=== PATIENT | male | born 1975 | race Caucasian/White ===

== ENCOUNTER 2016-03-28 11:40 | Emergency (ER) | payer BC ==
--- NOTE | 2016-03-28 13:29 | ED CLINICAL REPORT ---
Clinical Report - Physicians/Mid Levels [facility] [address] [place] [address] 03/28/2016 11:42 Patient: NOLBERTO العلي Time Seen: 1202; initial patient contact, initial documentation, patient care assumed. Arrived- By private vehicle. Historian- patient. HISTORY OF PRESENT ILLNESS Chief Complaint: ( shakes). This started today and is still present. It was abrupt in onset and has been constant. No loss of appetite, weight loss, headache, visual disturbance or fatigue. No muscle aches. Denies sleep problem. No decreased urine output. He has had weakness. (states he is a daily drinker, just got back from [place] yesterday, where he did even more drinking, and since then has had the shakes, feels weak, and doesn't feel good, last drink was last pm). Similar symptoms previously: Once, as bad. Recent medical care: Not recently seen/assessed. REVIEW OF SYSTEMS No sore throat, sinus drainage, nasal congestion, cough or difficulty breathing. No chest pain, abdominal pain, nausea, vomiting or diarrhea. No difficulty with urination. All systems otherwise negative, except as recorded above. PAST HISTORY See nurses notes. PROBLEMS: Alcoholism. --11:58 Jasen Jean R.N. ADDITIONAL SURGERIES: Vasectomy. --11:58 Jasen Jean R.N. SOCIAL HISTORY Former smoker. Heavy alcohol use; consumes liquor daily. Last drink was less than 24 hours ago. Patient is a longstanding alcoholic. No drug use. Recent travel by airplane in the last week- [facility]. No recent travel in endemic area. Did not participate in outdoor activities. Is a local resident. FAMILY HISTORY Negative. ADDITIONAL NOTES The nursing notes have been reviewed with agreement regarding the chief complaint, HPI, ROS, PMH and patient medications and allergies. PHYSICAL EXAM Vital Signs: 03/28/2016 11:54 BP: 153/95. HR: 109. RR: 22. O2 saturation: 98%. Temp: 98.8 F. Have been reviewed as abnormal and appear to be correct. Hypertensive. Tachycardic. Respiratory rate normal. Temperature normal. Oxygen saturation normal. Appearance: Alert. No acute distress. (tremors present). Eyes: Pupils equal, round and reactive to light. Eyes normal inspection. Neck: Normal inspection. Neck supple. CVS: Heart rate / rhythm abnormal. Tachycardia (ventricular rate = 110). Heart sounds normal. Pulses normal. Respiratory: No respiratory distress. Breath sounds normal. Chest nontender. Abdomen: No visible injury. Soft and nontender. Bowel sounds normal. No organomegaly. No mass. Back: Normal inspection. Skin: Skin warm and dry. Normal skin color. No rash. Normal skin turgor. Extremities: Extremities exhibit normal ROM. No lower extremity edema. Neuro: Oriented X 3. No motor deficit. No sensory deficit. LABS, X-RAYS, AND EKG Laboratory Tests: UA-Culture if indicated: (CHASTITY: 03/28/2016 12:40) ( [facility] 03/28/2016 12:55) Final results Test Result Flag Units (Reference) URINE COLOR YELLOW URINE APPEARANCE CLEAR URINE GLUCOSE NEGATIVE (NEGATIVE) URINE BILIRUBIN NEGATIVE (NEGATIVE) URINE KETONE 1+ (NEGATIVE) URINE SPECIFIC GRAVITY 1.015 (1.010-1.030) URINE PH 8.0 (5.0-8.0) URINE PROTEIN NEGATIVE (NEGATIVE) URINE UROBILINOGEN 0.2 EU/dL (0.2-1.0) URINE NITRITE NEGATIVE (NEGATIVE) URINE BLOOD NEGATIVE (NEGATIVE) URINE LEUK ESTERASE NEGATIVE (NEGATIVE) URINE RBC RARE rbc/hpf (0-1) URINE WBC RARE wbc/hpf (0-1) URINE EPITHELIAL CELLS RARE EPI/hpf (0-5) URINE BACTERIA NONE SEEN (NONE SEEN) URINE COMMENT CULT NOT INDICATED URINE CULTURES ARE SET-UP BASED ON THE FOLLOWING CRITERIA:POSITIVE NITRITEPOSITIVE LEUKOCYTE ESTERASEGREATER THAN 10 WHITE BLOOD CELLSMODERATE (2+) OR GREATER BACTERIA CBC w Diff: (CHASTITY: 03/28/2016 12:35) ( [facility] 03/28/2016 12:46) Final results Test Result Flag Units (Reference) WHITE BLOOD COUNT 8.2 K/uL (4.5-11.5) RED BLOOD COUNT 4.91 M/uL (4.50-5.90) HEMOGLOBIN 15.8 gm/dL (13.5-17.5) HEMATOCRIT 47.0 % (41.0-53.0) MEAN CELL VOLUME 96 fL (80-100) MEAN CORPUSCULAR HGB 32 pg (26-34) MEAN CORPUSCULAR HGB CONC 34 g/dL (31-37) RED CELL DISTRIBUTION WIDTH 13.0 % (11.6-14.8) PLATELET COUNT 170 K/uL (150-400) NEUTROPHIL % 81.9 H % (50-75) LYMPH % 11.4 L % (25-40) MONO % 5.8 % (3-14) EOSINOPHIL % 0.8 % (0-4) BASOPHIL % 0.1 % (0-2) Urine Drug Screen: (CHASTITY: 03/28/2016 12:40) ( MsgRcvd 03/28/2016 13:01) Final results Test Result Flag Units (Reference) AMPHETAMINE/METHAMPHETAMINE NEGATIVE (NEGATIVE) BARBITURATE NEGATIVE (NEGATIVE) BENZODIAZEPINE NEGATIVE (NEGATIVE) CANNABINOID NEGATIVE (NEGATIVE) COCAINE NEGATIVE (NEGATIVE) ECSTASY NEGATIVE (NEGATIVE) METHADONE NEGATIVE (NEGATIVE) OPIATE NEGATIVE (NEGATIVE) The urine drug screen is a qualitative screening test fordrug overdose and abuse. All screen results should beconsidered as presumptive.Drugs screened for are as follows:BenzodiazepinesCocaineAmphetamines/MetamphetaminesTHC (Tetrahydrocannabinol)OpiatesBarbituratesEcstasyMethadonePositive results are unconfirmed. For confirmation, notifythe lab for the specimen to be sent to the reference lab.All confirmations must be performed by a differentmethodology.The ingestion of natural herbal and plant productscontaining Ephedra/Ephedra metabolites can produce in urineone or more substances capable of cross reacting withamphetamine/methamphetamine immunoassays. These testsprovide a preliminary result only. A more specificalternative chemical method must be used to obtain aconfirmed analytical result. CMP: (CHASTITY: 03/28/2016 12:35) ( MsgRcvd 03/28/2016 13:07) Final results Test Result Flag Units (Reference) GLUCOSE 124 H mg/dL (70-110) BUN 7 mg/dL (7-18) CREATININE 0.7 mg/dL (0.6-1.3) Estimated GFR >60 mL/min Estimated GFR- >60 mL/min Note: Persistent reduction over 3 months in eGFR<60 mL/min/1.73 m2 defines CKD. Patients with eGFR values>=60 mL/min/1.73 m2 may also have CKD if evidence ofpersistent proteinuria. Additional information may be foundat www.kidney.org. SODIUM 141 mmol/L (136-145) POTASSIUM 3.8 mmol/L (3.5-5.1) CHLORIDE 101 mmol/L (98-107) CARBON DIOXIDE 28 mmol/L (21-32) CALCIUM 8.4 L mg/dL (8.5-10.1) TOTAL PROTEIN 7.4 g/dL (6.4-8.2) ALBUMIN 3.7 g/dL (3.3-5.0) BILIRUBIN, TOTAL 0.7 mg/dL (0.0-1.0) ALKALINE PHOSPHATASE 73 U/L (46-116) AST (SGOT) 105 H U/L (15-37) ALT (SGPT) 191 H U/L (12-78) LIPASE 223 U/L (73-393) AMYLASE 49 U/L (25-115) ETHYL ALCOHOL <3 L mg/dL (3-10) . PROGRESS AND PROCEDURES Course of Care: pt stated he felt better and the shakes almost gone. Patient counseled in person regarding the patient's stable condition, test results and diagnosis. 13:29. Differential Diagnosis: Other possible considerations: alcoholism, withdrawal, sz, hypoglycemia, electrolyte imbalance, muscle spasms, neuropathy, dehydration. Above considerations are based on history, physical exam and laboratory data. Differential diagnosis was discussed with patient. Disposition: Discharged home in good and improved condition (13:29). Condition: good and stable. CLINICAL IMPRESSION Alcohol withdrawal with delirium tremens. No irritability, agitation, confusion, delirium or hallucinations. No seizures. INSTRUCTIONS No alcohol. Warnings: GENERAL WARNINGS: Return or contact your physician immediately if your condition worsens or changes unexpectedly, if not improving as expected, or if other problems arise. Specifically return if problem worsens. Follow-up: Follow up with your doctor in about three days even if well. Call for an appointment. Summary of care provided to patient. Understanding of the discharge instructions verbalized by patient. (Electronically signed by Karina Edwards A.R.N.P. 03/28/2016 14:21)
--- NOTE | 2016-03-28 13:29 | ED ORDER SUMMARY ---
..... Patient: NOLBERTO العلي OrderSheet [facility] VisitID: [id number] [place] [address] 40y, M Registration Date/Time: 03/28/2016 ORDER SHEET Weight: 83.9 kg (stated) Allergies: No Known Drug Allergy GENERAL ORDERS: CBC w Diff Urgent (12:03/28/2016 HBivens A.R.N.P.) (Ack 12:10 LTapper) (12:42 MWinterer R.N.) CMP Urgent (12:03/28/2016 HBivens A.R.N.P.) (Ack 12:10 LTapper) (12:42 MWinterer R.N.) UA-Culture if indicated Urgent (12:03/28/2016 HBivens A.R.N.P.) (Ack 12:10 LTapper) (12:42 MWinterer R.N.) Amylase Urgent (12:03/28/2016 HBivens A.R.N.P.) (Ack 12:10 LTapper) (12:42 MWinterer R.N.) Lipase Urgent (12:03/28/2016 HBivens A.R.N.P.) (Ack 12:10 LTapper) (12:42 MWinterer R.N.) Urine Drug Screen Urgent (12:03/28/2016 HBivens A.R.N.P.) (Ack 12:10 LTapper) (12:42 MWinterer R.N.) Ethyl Alcohol Urgent (12:03/28/2016 HBivens A.R.N.P.) (Ack 12:10 LTapper) (12:42 MWinterer R.N.) MEDICATION ORDERS: IV FLUIDS: IV NS : initial bolus 1000 mL (1000 mL/hr), then none - for X1 (NOW) (12:03/28/2016 HBivens A.R.N.P.) (Ack 12:20 MWinterer R.N.) (12:42 MWinterer R.N.) IV Saline Lock (12:03/28/2016 HBivens A.R.N.P.) (Ack 12:20 MWinterer R.N.) (12:42 MWinterer R.N.) ORDER SHEET NOTES: [Electronically signed by Adelaida Junior (13:43 03/28/2016)] [Electronically signed by Karina EdwardsN.PJarod (14:21 03/28/2016)] [Electronically locked/signed by Adelaida Junior (13:43 03/28/2016)]
--- NOTE | 2016-03-28 13:29 | ED CLINICAL REPORT ---
Clinical Report - Physicians/Mid Levels [facility] [address] [place] [address] 03/28/2016 11:42 Patient: NOLBERTO العلي Time Seen: 1202; initial patient contact, initial documentation, patient care assumed. Arrived- By private vehicle. Historian- patient. HISTORY OF PRESENT ILLNESS Chief Complaint: ( shakes). This started today and is still present. It was abrupt in onset and has been constant. No loss of appetite, weight loss, headache, visual disturbance or fatigue. No muscle aches. Denies sleep problem. No decreased urine output. He has had weakness. (states he is a daily drinker, just got back from [place] yesterday, where he did even more drinking, and since then has had the shakes, feels weak, and doesn't feel good, last drink was last pm). Similar symptoms previously: Once, as bad. Recent medical care: Not recently seen/assessed. REVIEW OF SYSTEMS No sore throat, sinus drainage, nasal congestion, cough or difficulty breathing. No chest pain, abdominal pain, nausea, vomiting or diarrhea. No difficulty with urination. All systems otherwise negative, except as recorded above. PAST HISTORY See nurses notes. PROBLEMS: Alcoholism. --11:58 Jasen Jean R.N. ADDITIONAL SURGERIES: Vasectomy. --11:58 Jasen Jean R.N. SOCIAL HISTORY Former smoker. Heavy alcohol use; consumes liquor daily. Last drink was less than 24 hours ago. Patient is a longstanding alcoholic. No drug use. Recent travel by airplane in the last week- [facility]. No recent travel in endemic area. Did not participate in outdoor activities. Is a local resident. FAMILY HISTORY Negative. ADDITIONAL NOTES The nursing notes have been reviewed with agreement regarding the chief complaint, HPI, ROS, PMH and patient medications and allergies. PHYSICAL EXAM Vital Signs: 03/28/2016 11:54 BP: 153/95. HR: 109. RR: 22. O2 saturation: 98%. Temp: 98.8 F. Have been reviewed as abnormal and appear to be correct. Hypertensive. Tachycardic. Respiratory rate normal. Temperature normal. Oxygen saturation normal. Appearance: Alert. No acute distress. (tremors present). Eyes: Pupils equal, round and reactive to light. Eyes normal inspection. Neck: Normal inspection. Neck supple. CVS: Heart rate / rhythm abnormal. Tachycardia (ventricular rate = 110). Heart sounds normal. Pulses normal. Respiratory: No respiratory distress. Breath sounds normal. Chest nontender. Abdomen: No visible injury. Soft and nontender. Bowel sounds normal. No organomegaly. No mass. Back: Normal inspection. Skin: Skin warm and dry. Normal skin color. No rash. Normal skin turgor. Extremities: Extremities exhibit normal ROM. No lower extremity edema. Neuro: Oriented X 3. No motor deficit. No sensory deficit. LABS, X-RAYS, AND EKG Laboratory Tests: UA-Culture if indicated: (CHASTITY: 03/28/2016 12:40) ( [facility] 12:55) Final results Test Result Flag Units (Reference) URINE COLOR YELLOW URINE APPEARANCE CLEAR URINE GLUCOSE NEGATIVE (NEGATIVE) URINE BILIRUBIN NEGATIVE (NEGATIVE) URINE KETONE 1+ (NEGATIVE) URINE SPECIFIC GRAVITY 1.015 (1.010-1.030) URINE PH 8.0 (5.0-8.0) URINE PROTEIN NEGATIVE (NEGATIVE) URINE UROBILINOGEN 0.2 EU/dL (0.2-1.0) URINE NITRITE NEGATIVE (NEGATIVE) URINE BLOOD NEGATIVE (NEGATIVE) URINE LEUK ESTERASE NEGATIVE (NEGATIVE) URINE RBC RARE rbc/hpf (0-1) URINE WBC RARE wbc/hpf (0-1) URINE EPITHELIAL CELLS RARE EPI/hpf (0-5) URINE BACTERIA NONE SEEN (NONE SEEN) URINE COMMENT CULT NOT INDICATED URINE CULTURES ARE SET-UP BASED ON THE FOLLOWING CRITERIA:POSITIVE NITRITEPOSITIVE LEUKOCYTE ESTERASEGREATER THAN 10 WHITE BLOOD CELLSMODERATE (2+) OR GREATER BACTERIA CBC w Diff: (CHASTITY: 03/28/2016 12:35) ( [facility] 03/28/2016 12:46) Final results Test Result Flag Units (Reference) WHITE BLOOD COUNT 8.2 K/uL (4.5-11.5) RED BLOOD COUNT 4.91 M/uL (4.50-5.90) HEMOGLOBIN 15.8 gm/dL (13.5-17.5) HEMATOCRIT 47.0 % (41.0-53.0) MEAN CELL VOLUME 96 fL (80-100) MEAN CORPUSCULAR HGB 32 pg (26-34) MEAN CORPUSCULAR HGB CONC 34 g/dL (31-37) RED CELL DISTRIBUTION WIDTH 13.0 % (11.6-14.8) PLATELET COUNT 170 K/uL (150-400) NEUTROPHIL % 81.9 H % (50-75) LYMPH % 11.4 L % (25-40) MONO % 5.8 % (3-14) EOSINOPHIL % 0.8 % (0-4) BASOPHIL % 0.1 % (0-2) Urine Drug Screen: (CHASTITY: 03/28/2016 12:40) ( MsgRcvd 03/28/2016 13:01) Final results Test Result Flag Units (Reference) AMPHETAMINE/METHAMPHETAMINE NEGATIVE (NEGATIVE) BARBITURATE NEGATIVE (NEGATIVE) BENZODIAZEPINE NEGATIVE (NEGATIVE) CANNABINOID NEGATIVE (NEGATIVE) COCAINE NEGATIVE (NEGATIVE) ECSTASY NEGATIVE (NEGATIVE) METHADONE NEGATIVE (NEGATIVE) OPIATE NEGATIVE (NEGATIVE) The urine drug screen is a qualitative screening test fordrug overdose and abuse. All screen results should beconsidered as presumptive.Drugs screened for are as follows:BenzodiazepinesCocaineAmphetamines/MetamphetaminesTHC (Tetrahydrocannabinol)OpiatesBarbituratesEcstasyMethadonePositive results are unconfirmed. For confirmation, notifythe lab for the specimen to be sent to the reference lab.All confirmations must be performed by a differentmethodology.The ingestion of natural herbal and plant productscontaining Ephedra/Ephedra metabolites can produce in urineone or more substances capable of cross reacting withamphetamine/methamphetamine immunoassays. These testsprovide a preliminary result only. A more specificalternative chemical method must be used to obtain aconfirmed analytical result. CMP: (CHASTITY: 03/28/2016 12:35) ( MsgRcvd 03/28/2016 13:07) Final results Test Result Flag Units (Reference) GLUCOSE 124 H mg/dL (70-110) BUN 7 mg/dL (7-18) CREATININE 0.7 mg/dL (0.6-1.3) Estimated GFR >60 mL/min Estimated GFR- >60 mL/min Note: Persistent reduction over 3 months in eGFR<60 mL/min/1.73 m2 defines CKD. Patients with eGFR values>=60 mL/min/1.73 m2 may also have CKD if evidence ofpersistent proteinuria. Additional information may be foundat www.kidney.org. SODIUM 141 mmol/L (136-145) POTASSIUM 3.8 mmol/L (3.5-5.1) CHLORIDE 101 mmol/L (98-107) CARBON DIOXIDE 28 mmol/L (21-32) CALCIUM 8.4 L mg/dL (8.5-10.1) TOTAL PROTEIN 7.4 g/dL (6.4-8.2) ALBUMIN 3.7 g/dL (3.3-5.0) BILIRUBIN, TOTAL 0.7 mg/dL (0.0-1.0) ALKALINE PHOSPHATASE 73 U/L (46-116) AST (SGOT) 105 H U/L (15-37) ALT (SGPT) 191 H U/L (12-78) LIPASE 223 U/L (73-393) AMYLASE 49 U/L (25-115) ETHYL ALCOHOL <3 L mg/dL (3-10) . PROGRESS AND PROCEDURES Course of Care: pt stated he felt better and the shakes almost gone. Patient counseled in person regarding the patient's stable condition, test results and diagnosis. 13:29. Differential Diagnosis: Other possible considerations: alcoholism, withdrawal, sz, hypoglycemia, electrolyte imbalance, muscle spasms, neuropathy, dehydration. Above considerations are based on history, physical exam and laboratory data. Differential diagnosis was discussed with patient. Disposition: Discharged home in good and improved condition (13:29). Condition: good and stable. CLINICAL IMPRESSION Alcohol withdrawal with delirium tremens. No irritability, agitation, confusion, delirium or hallucinations. No seizures. INSTRUCTIONS No alcohol. Warnings: GENERAL WARNINGS: Return or contact your physician immediately if your condition worsens or changes unexpectedly, if not improving as expected, or if other problems arise. Specifically return if problem worsens. Follow-up: Follow up with your doctor in about three days even if well. Call for an appointment. Summary of care provided to patient. Understanding of the discharge instructions verbalized by patient. (Electronically signed by Karina Edwards A.R.N.P. 03/28/2016 14:21)
--- NOTE | 2016-03-28 13:29 | ED NURSING NOTES ---
Clinical Report - Nurses [facility] [address] [place] [place] [address] 03/28/2016 11:42 Patient: NOLBERTO العلي TRIAGE Triage time 11:50. Acuity: LEVEL 3. Chief Complaint: DIZZINESS and ALCOHOLIC. 11:58 03/28/16. Alert. No acute distress. FUAD COMA SCORE: [place] Coma Scale: 15- eyes open spontaneously (4); best verbal response- oriented x 4 (5); best motor response- obeys commands (6). --11:58 Jasen Jean R.N. 11:54 03/28/16. BP: 153/95. HR: 109. RR: 22. O2 saturation: 98% on room air. Temp: 98.8 F (oral). Pain level now 0/10. --11:58 Jasen Jean R.N. Weight: 83.9 kg stated. Height/Length: 72 inches Per Patient. BMI: 25.1. --11:55 Jasen Jean R.N. Medications None. --11:57 Jasen Jean R.N. Allergies No Known Drug Allergy. --11:57 Jasen Jean R.N. Medication/allergy information source: the patient. --11:58 Jasen Jean R.N. History Primary physician (no pcp). ( states heavy use of ETOH, approx 12 shots per night. States last drink was last night. C/O shakiness and dizziness today. States he has previously withdrawn from etoh but denies any seizures or hospital admissions r/t etoh withdrawl.). This started today. Treatment INVESTMENT DIRECTOR: None. SOCIAL HX: Former smoker, end date 2006. Alcohol use; consumes a large amount of liquor daily. (12 drinks daily). No drug use. FALL RISK ASSESSMENT: Fall risk assessment completed. No fall risk identified. NUTRITIONAL RISK ASSESSMENT: The nutritional risk assessment revealed no deficiencies. FUNCTIONAL ASSESSMENT: Functional assessment: no impairments noted. LEARNING NEEDS ASSESSMENT: The learning needs assessment revealed no barriers. SKIN INTEGRITY ASSESSMENT: Skin integrity risk assessment completed. No skin integrity risk identified. --11:58 Jasen Jean R.N. PROBLEMS: Alcoholism. --11:58 Jasen Jean R.N. ADDITIONAL SURGERIES: Vasectomy. --11:58 Jasen Jean R.N. Interventions ID band on patient. To treatment room. --11:58 Jasen Jean R.N. PHYSICAL ASSESSMENT Ambulatory to room. GENERAL / NEURO / PSYCH: Oriented X 4. Appears anxious. Alert. Speech within normal limits. ( mild tremors present). HEENT: No facial asymmetry noted. RESPIRATORY: Breath sounds within normal limits. Respirations not labored. CVS: Capillary refill less than 2 seconds. GI / : Abdomen soft and nontender. SKIN: Skin is warm and dry. --11:59 Jasen Jean R.N. NURSING PROGRESS NOTES 11:59 03/28/16. The plan of care for this patient has been created. Patient gowned. Head of bed elevated. Call light placed in reach. Bed placed in lowest position. Brakes of bed on. Patient ready for evaluation- chart flagged. --11:59 Jasen Jean R.N. 12:31 03/28/2016 Site #1 started via IV in the left antecubital space with an 20g angiocath, with aseptic technique and good blood return; one attempt. Blood drawn: rainbow set. Labeled in the presence of the patient and sent to the lab. --12:41 Katie Tony R.N. 12:42 03/28/2016 Started bag #1 1000 mL IV Fluids IV NS (Saline); at 999 mL/hr over 1 hour(s) via site #1 via IV pump. Allergies verified and confirmed 5 rights. IV patency established. IV site checked: no pain, redness, or swelling. IV flushed thoroughly pre- and post-medication administration. --12:42 Katie Tony R.N. Patient ID band checked for patient name and birthdate: patient confirmed. Instructions provided to collect clean catch urine and patient verbalized understanding. Clean catch urine collected with return of yellow-colored clear urine; odor is normal; sample sent to lab for urinalysis. Specimen labeled in the presence of the patient. --12:42 Jasen Jean R.N. DISPOSITION / DISCHARGE 13:41 03/28/16. BP: 161/95. HR: 102. RR: 18. O2 saturation: 97%. Pain level now 06/08. --13:42 Adelaida Junior Departure time: 13:42. Condition at departure: improved and stable. No learning barriers present. Discharge instructions provided and reviewed with the patient. Reviewed referrals. Patient verbalized understanding. Written instructions provided in Azeri. The patient was discharged by the physician. He was discharged home. He left the Emergency Department ambulatory and via private vehicle. Patient driving. --13:42 Adelaida Junior 13:42 03/28/2016 Site #1 removed upon discharge. Pressure dressing applied. --13:42 Adelaida Junior 13:42 03/28/2016 IV Fluids IV NS Discontinued: bag #1 infused upon discharge. Total amount infused: 1000 mL. --13:42 Adelaida Junior. Locked/Released at 03/28/2016 13:43 by Adelaida Junior,
--- NOTE | 2016-03-28 13:29 | ED ORDER SUMMARY ---
..... Patient: NOLBERTO العلي OrderSheet [facility] VisitID: [id number] [place] [address] 40y, M Registration Date/Time: 03/28/2016 ORDER SHEET Weight: 83.9 kg (stated) Allergies: No Known Drug Allergy GENERAL ORDERS: CBC w Diff Urgent (12:03/28/2016 HBivens A.R.N.P.) (Ack 12:10 LTapper) (12:42 MWinterer R.N.) CMP Urgent (12:03/28/2016 HBivens A.R.N.P.) (Ack 12:10 LTapper) (12:42 MWinterer R.N.) UA-Culture if indicated Urgent (12:03/28/2016 HBivens A.R.N.P.) (Ack 12:10 LTapper) (12:42 MWinterer R.N.) Amylase Urgent (12:03/28/2016 HBivens A.R.N.P.) (Ack 12:10 LTapper) (12:42 MWinterer R.N.) Lipase Urgent (12:03/28/2016 HBivens A.R.N.P.) (Ack 12:10 LTapper) (12:42 MWinterer R.N.) Urine Drug Screen Urgent (12:03/28/2016 HBivens A.R.N.P.) (Ack 12:10 LTapper) (12:42 MWinterer R.N.) Ethyl Alcohol Urgent (12:03/28/2016 HBivens A.R.N.P.) (Ack 12:10 LTapper) (12:42 MWinterer R.N.) MEDICATION ORDERS: IV FLUIDS: IV NS : initial bolus 1000 mL (1000 mL/hr), then none - for X1 (NOW) (12:03/28/2016 HBivens A.R.N.P.) (Ack 12:20 MWinterer R.N.) (12:42 MWinterer R.N.) IV Saline Lock (12:03/28/2016 HBivens A.R.N.P.) (Ack 12:20 MWinterer R.N.) (12:42 MWinterer R.N.) ORDER SHEET NOTES: [Electronically signed by Adelaida Junior (13:43 03/28/2016)] [Electronically signed by Karina EdwardsN.PJarod (14:21 03/28/2016)] [Electronically locked/signed by Adelaida Junior (13:43 03/28/2016)]
--- NOTE | 2016-03-28 14:22 | ED DISCHARGE INSTRUCTIONS ---
Patient: NOLBERTO العلي General Instructions [facility] VisitID: [id number] [place] [address] 40y, M Registration Date/Time: 03/28/2016 Alcohol withdrawal with delirium tremens. No irritability, agitation, confusion, delirium or hallucinations. No seizures. INSTRUCTIONS No alcohol. Warnings: GENERAL WARNINGS: Return or contact your physician immediately if your condition worsens or changes unexpectedly, if not improving as expected, or if other problems arise. Specifically return if problem worsens. Follow-up: Follow up with your doctor in about three days even if well. Call for an appointment. Summary of care provided to patient. Understanding of the discharge instructions verbalized by patient. ADDITIONAL INFORMATION Alcohol Withdrawal Alcohol withdrawal symptoms occur if you have been drinking steadily for at least several days, and your body gets used to the effect of alcohol. When you suddenly stop drinking (or, even just cut down your daily intake but continue to drink), you may develop alcohol withdrawal, also called the The usual symptoms last 3-4 days and include nervousness, shakiness, nausea, sweating, sleeplessness. In severe cases hallucinations (seeing things that are not there) and seizures can occur. Home Care: You will need plenty of rest and fluids over the next several days. Eat regular meals. Of course, do not drink any more alcohol. During this time, it is best that you stay with family or friends who can help and support you. You can also admit yourself to a residential detox program. Do not drive until all symptoms are gone and you are feeling better. If you were given sedative medication to reduce your symptoms, do not take it more often than prescribed and never take it with alcohol. Follow Up: Once you have gone through the withdrawal symptoms, you have fought half of the dacosta. To avoid the risk of returning to your previous drinking pattern, it is essential that you get follow-up support and treatment. Alcoholics Anonymous offers support through a self-help fellowship. There are no dues or fees. See the Yellow Pages and call for time and place of meetings. www.aa.org [employer] offers support to families of alcohol users. 348.948.7069 www.al-anon.org National [place] On Alcoholism And Drug Dependence 323-142-3432 www.ncadd.org Residential alcohol detox programs are available. Check the Yellow Pages under Drug Abuse & Treatment Centers. Get Prompt Medical Attention if any of the following occur: Severe shakiness Hallucinations Seizure Fever over 100.5 F (38.0 C) oral Headache, confusion, extreme drowsiness, inability to awaken Increasing upper abdominal pain Repeated vomiting or vomiting blood You have been given the following additional information: Alcohol Withdrawal (Electronically signed by Karina Edwards A.R.N.PJarod 03/28/2016 14:21)
--- NOTE | 2016-03-28 14:22 | ED MAR SUMMARY ---
..... Medication Administration Record [facility] [address] [place] [address] Patient: NOLBERTO العلي Visit ID: [id number] 40y, M Weight: 83.9 kg Height/Length: 72 in BMI: 25.1 ALLERGIES: No Known Drug Allergy Start 12:42 03/28/2016 Katie Tony R.N., Stop 13:42 03/28/2016 Adelaida Junior, Medication Administered: IV NS (SALINE), Dose: IV Fluids over 1 hour(s), Rate: 999 mL/hr, Dispensed: 1000 mL bag, Site: #1 left AC. Medication Ordered: IV NS : initial bolus 1000 mL (1000 mL/hr), then none - for X1 (NOW).
--- NOTE | 2016-03-28 14:22 | ED MED RECONCILIATION SUMMARY ---
Patient: NOLBERTO العلي Medication Reconciliation Report [facility] VisitID: [id number] [address] [place] [address] 40y, M Registration Date/Time: 03/28/2016 Weight: 83.9 kg Height/Length: 72 in. BMI: 25.1 ALLERGIES: No Known Drug Allergy The patient's Home Medications are listed below: NONE. The source(s) of the original Home Medication information: patient The following Medications were given to the patient in the Emergency Department: IV NS IV Fluids bolus 0, then 999 mL/hr, administered: 03/28/2016 12:42:00 PM The following Medications were prescribed to the patient: None.
--- NOTE | 2016-03-28 14:22 | ED DISCHARGE INSTRUCTIONS ---
Patient: NOLBERTO العلي General Instructions [facility] VisitID: [id number] [place] [address] 40y, M Registration Date/Time: 03/28/2016 Alcohol withdrawal with delirium tremens. No irritability, agitation, confusion, delirium or hallucinations. No seizures. INSTRUCTIONS No alcohol. Warnings: GENERAL WARNINGS: Return or contact your physician immediately if your condition worsens or changes unexpectedly, if not improving as expected, or if other problems arise. Specifically return if problem worsens. Follow-up: Follow up with your doctor in about three days even if well. Call for an appointment. Summary of care provided to patient. Understanding of the discharge instructions verbalized by patient. ADDITIONAL INFORMATION Alcohol Withdrawal Alcohol withdrawal symptoms occur if you have been drinking steadily for at least several days, and your body gets used to the effect of alcohol. When you suddenly stop drinking (or, even just cut down your daily intake but continue to drink), you may develop alcohol withdrawal, also called the The usual symptoms last 3-4 days and include nervousness, shakiness, nausea, sweating, sleeplessness. In severe cases hallucinations (seeing things that are not there) and seizures can occur. Home Care: You will need plenty of rest and fluids over the next several days. Eat regular meals. Of course, do not drink any more alcohol. During this time, it is best that you stay with family or friends who can help and support you. You can also admit yourself to a residential detox program. Do not drive until all symptoms are gone and you are feeling better. If you were given sedative medication to reduce your symptoms, do not take it more often than prescribed and never take it with alcohol. Follow Up: Once you have gone through the withdrawal symptoms, you have fought half of the dacosta. To avoid the risk of returning to your previous drinking pattern, it is essential that you get follow-up support and treatment. Alcoholics Anonymous offers support through a self-help fellowship. There are no dues or fees. See the Yellow Pages and call for time and place of meetings. www.aa.org [employer] offers support to families of alcohol users. 202.938.3497 www.al-anon.org National [place] On Alcoholism And Drug Dependence 861-014-2480 www.ncadd.org Residential alcohol detox programs are available. Check the Yellow Pages under Drug Abuse & Treatment Centers. Get Prompt Medical Attention if any of the following occur: Severe shakiness Hallucinations Seizure Fever over 100.5 F (38.0 C) oral Headache, confusion, extreme drowsiness, inability to awaken Increasing upper abdominal pain Repeated vomiting or vomiting blood You have been given the following additional information: Alcohol Withdrawal (Electronically signed by Karina Edwards A.R.N.PJarod 03/28/2016 14:21)
--- NOTE | 2016-03-28 14:22 | ED MAR SUMMARY ---
..... Medication Administration Record [facility] [address] [place] [address] Patient: NOLBERTO العلي Visit ID: [id number] 40y, M Weight: 83.9 kg Height/Length: 72 in BMI: 25.1 ALLERGIES: No Known Drug Allergy Start 12:42 03/28/2016 Katie Tony R.N., Stop 13:42 03/28/2016 Adelaida Junior, Medication Administered: IV NS (SALINE), Dose: IV Fluids over 1 hour(s), Rate: 999 mL/hr, Dispensed: 1000 mL bag, Site: #1 left AC. Medication Ordered: IV NS : initial bolus 1000 mL (1000 mL/hr), then none - for X1 (NOW).
--- NOTE | 2016-03-28 14:22 | ED MED RECONCILIATION SUMMARY ---
Patient: NOLBERTO العلي Medication Reconciliation Report [facility] VisitID: [id number] [address] [place] [address] 40y, M Registration Date/Time: 03/28/2016 Weight: 83.9 kg Height/Length: 72 in. BMI: 25.1 ALLERGIES: No Known Drug Allergy The patient's Home Medications are listed below: NONE. The source(s) of the original Home Medication information: patient The following Medications were given to the patient in the Emergency Department: IV NS IV Fluids bolus 0, then 999 mL/hr, administered: 03/28/2016 12:42:00 PM The following Medications were prescribed to the patient: None.
== END 2016-03-28 13:42 | disposition home or self-care (01) ==
LOC: ED SRH 11:40
DX: F10.239 Alcohol dependence with withdrawal, unspecified (principal); R25.1 Tremor, unspecified; Z87.891 Personal history of nicotine dependence
CPT/HCPCS: 90004; 90100; 92010; 92235; 92530; 92760; 92761; 92762; 92763; 92764; 92765; 92766; 92767; 95059